=== PATIENT | female | born 1990 | race Two or more races ===

== ENCOUNTER 2019-07-05 18:26 | Emergency (ER) | payer OTHER ==
[~2019-07-05] VITALS: Ht 160 cm; Wt 57.6 kg
[2019-07-05] MEDS ORDERED: PRENATAL TABLE1 EAC1 (21:02)
[2019-07-05] MEDS ORDERED: TUSNEL LIQUID178 ML PO (23:02)
[2019-07-05] MEDS ORDERED: ZITHROMAX500 MG PO (23:02)
== END 2019-07-05 23:06 | disposition home or self-care (01) ==
LOC: ER 18:26
DX: J06.9 Acute upper respiratory infection, unspecified (principal); R05 Cough; R30.0 Dysuria

== ENCOUNTER → 2019-08-10 | Outpatient (CLI) | payer OTHER ==
[~2019-08-10] MED LIST: PRENATAL TABLE1 EAC1; TUSNEL LIQUID178 ML PO; ZITHROMAX500 MG PO
== END | disposition home or self-care (01) ==
LOC: PRENATAL 11:00
DX: O26.891 Other specified pregnancy related conditions, first trimester (principal); O36.80X1 Pregnancy with inconclusive fetal viability, fetus 1; Z36.82 Encounter for antenatal screening for nuchal translucency

== ENCOUNTER → 2019-09-21 | Outpatient (CLI) | payer OTHER | END | disposition home or self-care (01) | LOC: PRENATAL 10:00 | DX: O99.89 Other specified diseases and conditions complicating pregnancy, childbirth and the puerperium (principal); O28.3 Abnormal ultrasonic finding on antenatal screening of mother; O35.3XX0 Maternal care for (suspected) damage to fetus from viral disease in mother, not applicable or unspecified; Z3A.19 19 weeks gestation of pregnancy ==

== ENCOUNTER 2020-01-20 05:01 | Inpatient (IN) | payer OTHER ==
[~2020-01-20] VITALS: Ht 160 cm; Wt 73.5 kg
[2020-01-21] MEDS ORDERED: KEFLEX500 MG PO (12:52)
== END 2020-01-21 14:02 | disposition home or self-care (01) | DRG 832 ==
LOC: OBS/DEL 05:01 → LDR 08:59
PROVIDERS: ADMIT Obstetrics & Gynecology
DX: O60.03 Preterm labor without delivery, third trimester (principal); O23.33 Infections of other parts of urinary tract in pregnancy, third trimester; Z3A.36 36 weeks gestation of pregnancy

== ENCOUNTER 2020-02-07 07:09 | Inpatient (IN) | payer OTHER ==
[~2020-02-07] VITALS: Ht 160 cm; Wt 73.9 kg
[~2020-02-07 07:09] MED LIST changes: +KEFLEX500 MG PO
== END 2020-02-09 13:15 | disposition home or self-care (01) | DRG 807 ==
LOC: LDR 07:09 → OB/GYN 14:26
PROVIDERS: ADMIT Obstetrics & Gynecology; ATTEND Obstetrics & Gynecology
PROC: 10E0XZZ Delivery of Products of Conception, External Approach (ICD-10-PCS; principal; 2020-02-07)
PROC: 0HQ9XZZ Repair Perineum Skin, External Approach (ICD-10-PCS; 2020-02-07)
PROC: 10907ZC Drainage of Amniotic Fluid, Therapeutic from Products of Conception, Via Natural or Artificial Opening (ICD-10-PCS; 2020-02-07)
PROC: 4A1HXCZ Monitoring of Products of Conception, Cardiac Rate, External Approach (ICD-10-PCS; 2020-02-07)
DX: O70.0 First degree perineal laceration during delivery (principal); Z37.0 Single live birth; Z3A.38 38 weeks gestation of pregnancy

== ENCOUNTER 2023-11-24 16:16 | Emergency (ER) | payer OTHER ==
[~2023-11-24] VITALS: Ht 160 cm; Wt 60.8 kg
[2023-11-24 17:44] LABS: HEMATOCRIT 36.9 % (36.0-45.00); HEMOGLOBIN 12.4 g/dL (12.0-15.00); MEAN CELL VOLUME 80.7 fL (80.00-100.00); MEAN CORPUSCULAR HEMOGLOBIN 27.1 pg (27.00-32.0); MEAN CORPUSCULAR HGB CONC 33.6 g/dl (32.0-36.0); PLATELET COUNT 254 K/uL (150-450); RED BLOOD COUNT 4.57 M/uL (4.00-6.00); RED CELL DISTRIBUTION WIDTH 16.2 % (11.5-14.5)
[2023-11-24 18:07] LABS: INR 1.04; PARTIAL THROMBOPLASTIN TIME 28.3 SECONDS (22.0-34.0); PROTHROMBIN TIME 10.9 SECONDS (9.0-11.5)
[2023-11-24 18:13] LABS: CALCIUM 9.2 mg/dL (8.5-10.1); CREATININE SERUM 0.6 mg/dL (0.55-1.02); GFR 116.6; POTASSIUM 3.64 mEq/L (3.5-5.1)
[2023-11-24 18:14] LABS: URINE APPEARANCE Turbid; URINE BILIRRUBIN Negative (NEGATIVE); URINE BLOOD Large; URINE COLOR Yellow; URINE GLUCOSE Negative (NEGATIVE); URINE LEUKOCYTE Trace; URINE NITRATE Negative; URINE PROTEIN Negative (NEGATIVE)
[2023-11-24 18:17] LABS: URINE BACTERIA 88.1 uL (0.0-1933); URINE EPITHELIAL CELLS 9.4 uL (0.0-38.8); URINE RBC 3791.7 uL (0.0-20.8); URINE WBC 42.4 uL (0.0-23.2)
== END 2023-11-24 19:29 | disposition home or self-care (01) ==
LOC: ER 16:16
PROVIDERS: General Practice
DX: O20.8 Other hemorrhage in early pregnancy (principal)